=== PATIENT | female | born 1950 | race American Indian/Alaskan Native ===

== ENCOUNTER 2025-03-28 09:01 | Outpatient (AMB) | payer OTHER, SELFPAY ==
[2025-03-28 09:24] VITALS: BP 174/102; PULSE 52; RESP 18; TEMP 36.2; BMI 31.7
--- NOTE | 2025-03-28 09:24 | PD.GSCLVISIT ---
Vital Signs - [facility] 03/28/25 09:24 Height 1.55 m Height Method Stated Weight 76.232 kg Weight Measurement Method Standing Scale BMI 31.7 BP 174/102 H Blood Pressure Source Automatic Cuff Blood Pressure Location Right Upper Arm Position Sitting Respiration 18 Pulse 52 L Pulse Source Monitor Temp 97.2 F Temp Source Temporal Artery Scan Oxygen Delivery Method Room Air Med/Allergies Allergies & Medications Allergies NSAIDS (Non-Steroidal Anti-Inflamma Adverse Reaction (Verified 03/28/25 09:25) THROAT CLOSING Medication Reconciliation aspirin 81 mg tablet,delayed release 81 mg PO QDAY 03/28/25 [History Confirmed 03/28/25] atorvastatin 40 mg tablet 40 mg PO QDAY 03/28/25 [History Confirmed 03/28/25] fenofibrate micronized 200 mg capsule 200 mg PO QDAY 03/28/25 [History Confirmed 03/28/25] levothyroxine 125 mcg capsule 125 mcg PO QDAY 03/28/25 [History Confirmed 03/28/25] metoprolol succinate 100 mg tablet,extended release 24 hr 100 mg PO QDAY 03/28/25 [History Confirmed 03/28/25] valsartan 320 mg tablet 320 mg PO QDAY 03/28/25 [History Confirmed 03/28/25] MA Intake Visit Data Collection New Patient or Established: New Patient (never been to [facility]) Reason for Visit:: REFERRAL CONSULT FOR ABDOMINAL PAIN Pain scale:: 0 Pain Scale Used: Kyleigh/Numerical Anchor Tack Puller Required: No PCP or OBGYN visit in last 3 months: Yes Hx Now: No Do You Feel Safe at Home: Yes Authorities Contacted: N/A Smoking Status Smoking Status: Current some day smoker Cessation Counseling Provided: MINDY was advised that quitting smoking is the single most important factor to protect the health of themselves and their family. Discussed the benefits of quitting smoking with patient. Encouraged patient to quit smoking and provided Cessation assistance materials and resources. Tobacco Use: Cigarette Years smoked: 10 Are you interested in quitting?: No Would you like additional Smoking Cessation Counseling?: No Immunization / Flu Flu Vaccine in the Last 12 Months: Yes Flu Vaccine Exclusion Criteria: Already Received Past Medical History Past Medical History ENDOCRINE: Positive Hypothyroidism Surgical History SURGICAL: Positive Abdominal Surgery (APPENDECTOMY) Social History SMOKING STATUS: Smoking status: Current some day smoker ALCOHOL: Alcohol Intake: Never Travel Risk Travel Hx Recent Travel: No HPI HPI Narrative 74F referred for mesenteric mass. 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 Pt underwent laparoscopy with planned resection by Dr Talamantes in March 2022 however according to his operative note, the mass was at the root of the mesentery so he did not perform resection due to concern that the small bowel would be compromised. He then referred pt to Dr Ellis of oncology who advised pt she would need 9 monthly shots, each of which would cost her $800 out of pocket. Pt believes it was octreotide and she received 1 dose in Aug 2022, but she felt it did not help her diarrhea and due to the cost she opted not to take any further injections. Pt states since Dec 2021 she has had diarrhea with 10-15 watery bowel movements per day, but she had not had any further episodes of pain until March 2025 when she again developed burning epigastric pain. Pt states it was so severe she was unable to eat and she lost about 10lbs, and again she was treated at [facility] but this time she was diagnosed with diverticulitis. Pt states she did not have any LLQ pain and that she did see Dr Horn during this time who again urged her to follow up with oncology to receive octreotide. Pt reports she takes magnesium and prune juice daily because otherwise she feels constipated, and that her epigastric pain does improve after she has a BM. She drinks 2-4 bottles of water daily but does not take fiber supplementation. Her last colonoscopy was early and pt believes it was normal, since then she has done stool testing most recently with cologuard late last year which she was told was normal PMH: HTN, HLD, hypothyroidism PSHx: Appendectomy in remote past, laparoscopy, Csection, foot surgery Meds: ASA, atorvastatin, fenofibrate, levothyroxine, metoprolol, valsartan Allergies: NSAIDs, ?dexamethasone Family hx: brother of leukemia in early 30s, no known CRC ROS Review of Systems Systems Reviewed: All systems reviewed, normal except as documented Objective/Exam General General Appearance: alert, cooperative and well groomed Resp Respiratory exam: Absent respiratory distress Abdominal Abdominal exam: Present soft and scar (RLQ scar); Absent distention or tenderness Results [facility] records reviewed from 2021 Assessment & Plan Diagnosis / Problem List (1) Mesenteric mass: Status: Acute Assessment & Plan: 74F with a mesenteric mass reportedly diagnosed as carcinoid tumor in 2021, s/p attempted resection at that time which was aborted due to the location of the tumor at the root of the mesentery. I explained to the pt that this description of the location of the lesion does preclude safe resection and I recommended she follow up with oncology again to reconsider octreotide for symptom management. Pt would like to discuss this with her before proceeding (2) Diverticulitis: Status: Acute Assessment & Plan: Pt reports being recently hospitalized for her first episode of diverticulitis. As she has not had a colonoscopy for approximately 20 years I recommended a follow up but not before May 2025 to minimize risk of perforation. Pt expressed understanding and is agreeable to this plan Advanced Care Planning Advance care planning discussed with:: other Office Procedures GNS Level of Care Nursing/Assessment Patient Status: Initial/New Patient Nursing Assessment/Reassesment: Medication Reconciliation, Update PMH in EMR and Vital Signs Coordination of Care: Complex Care and Chronic Disease 1-5, Education Complex Pt/Fam, Consent,records obtained, informed consent, Lab and Imaging orders, Results/Orders obtained and Staff clarify orders New Patient Charge New Patient Point Assignment: [id number] New Patient Point Charge: SPRAY II PAINTER Level 3 ([id number]) Patient Portal Questionaires Social History Tobacco History Smoking Status: Current some day smoker Alcohol History Alcohol Intake: Never Domestic Abuse History Do You Feel Safe at Home: Yes Review of Systems Report any current symptoms Only answer those that you have currently: Past Medical History Past Medical History Have you ever been diagnosed with any of the following: Endocrine Problems Hypothyroidism: Yes
== END 2025-03-28 10:01 | disposition home or self-care (01) ==
LOC: HODSRG 09:01
PROVIDERS: Supervising Provider Surgery; Visit Provider Surgery
DX: R19.00 Intra-abdominal and pelvic swelling, mass and lump, unspecified site (principal); K57.92 Diverticulitis of intestine, part unspecified, without perforation or abscess without bleeding
CPT/HCPCS: 99203; G0463